=== PATIENT | male | born 1960 | race Caucasian/White ===

== ENCOUNTER 2020-09-26 07:44 | Outpatient (CLI) | payer OTHER ==
[2020-09-26 16:51] LABS: Anion Gap 15 mmol/L (10-20); BUN (Urea Nitrogen) 17 mg/dL (8.4-25.7); Calc. Creatinine Clearance 0 mL/min (70-130); Carbon Dioxide 22 mmol/L (22-29); Chloride 104 mmol/L (98-107); Potassium 4.5 mmol/L (3.5-5.1); Sodium 136 mmol/L (136-145)
[2020-09-26 16:52] LABS: Glucose 106 mg/dL (70-105)
[2020-09-27 02:28] LABS: SARS-CoV-2 MS2 Positive; SARS-CoV-2 N Gene Negative; SARS-CoV-2 S Gene Negative; SARS-CoV-2 by NAA Not Detected (NotDetected); SARS-CoV-2 orf1ab Negative
== END 2020-09-26 07:45 | disposition home or self-care (01) ==
LOC: LABBT 07:44
PROVIDERS: ATTEND Neurological Surgery
DX: Z01.818 Encounter for other preprocedural examination (principal); Z20.822 Contact with and (suspected) exposure to COVID-19; M48.061 Spinal stenosis, lumbar region without neurogenic claudication
CPT/HCPCS: 80048; 87635; 93005; 93010; U0003

== ENCOUNTER 2020-10-01 06:07 | Day surgery (SDC) | payer OTHER ==
[2020-09-29 13:46] VITALS: BMI 34.0
--- NOTE | 2020-09-30 16:56 | HP ---
HISTORY: Mr. Nuñez is referred to us for evaluation of neurogenic claudication and radiculopathy. [facility] that reveals lateral recess and moderate central canal stenosis of the lumbar segments, spanning L3-L5. He has had these injected by Dr. Mckinney as well as attempted physical therapies and while they helped, they were limited in their benefit. He hopes to discuss surgical intervention if possible. PAST MEDICAL HISTORY: Hypercholesterolemia, chronic pain syndrome, osteoarthritis, seasonal allergies and hypertension. PAST SURGICAL HISTORY: Right ankle, right hand, left hand, unspecified procedures. CURRENT MEDICATIONS: 1. Omeprazole. 2. Diclofenac. 3. Vytorin. 4. Lisinopril. 5. Fenofibrate. 6. Cyclobenzaprine. 7. Tizanidine. ALLERGIES: PENICILLIN, HYDROCHLOROTHIAZIDE. PHYSICAL EXAMINATION: Deferred for telehealth visit. ASSESSMENT: Lumbar spinal stenosis. PLAN: Dr. Trinh met with the patient, reviewed imaging and advocated for an L3-L5 decompression. He explained to the patient the risks, benefits, and alternatives of the procedure. The patient expressed understanding and elected to move forward with surgery as discussed. I do believe the patient is mentally competent and capable of making medical decisions for himself. We will move forward with surgery as planned. Job ID: [id number]
[2020-10-01] MEDS ORDERED: EPINEPHrine 1 MG/ML AMP ONE (06:25)
[2020-10-01] MEDS ORDERED: Bupivacaine PF 0.5% 30 ML VIAL ONE (06:25)
[2020-10-01] MEDS ORDERED: Thrombin 5000 UNITS/5 ML VIAL ONE (06:25)
[2020-10-01] MEDS ORDERED: Clindamycin/D5W 900 mg/50 ml Premix Bag ONE (06:34)
[2020-10-01] MEDS ORDERED: Levofloxacin 500 mg/D5W 100 ml Premix Bag ONE (06:34)
[2020-10-01] MEDS ORDERED: Fentanyl 100 MCG/2 ML VIAL ONE ×2 (06:52→09:57)
[2020-10-01] MEDS ORDERED: Midazolam HCl 2 mg/2 ml Vial ONE ×2 (07:27→08:04)
[2020-10-01] MEDS ORDERED: Mineral Oil Sterile 10ML 10 ML UDCUP ONE (07:57)
[2020-10-01] MEDS ORDERED: HYDROmorphone 2 MG/ML VIAL ONE (08:09)
[2020-10-01] MEDS ORDERED: SUGAMMADEX SODIUM 200 MG/2 ML VIAL ONE (08:57)
--- NOTE | 2020-10-01 09:10 | OP ---
DATE OF PROCEDURE: 10/01/2020 FINISHER HOT STRIP: Agus Kang PA-C INDICATION: Pain. DIAGNOSIS: Lumbar stenosis with lumbar radiculopathy. PROCEDURE PERFORMED: Bilateral L3-5 decompression. ANESTHESIA: General. DESCRIPTION OF PROCEDURE: The patient was brought into the operating room and placed under general anesthesia. He was flipped from the supine to prone position on operating room table. A linear incision was planned spanning L3 through L5. After prepping and draping and after an appropriate preoperative pause, the incision was created. The soft tissues were swept away from midline. Self-retaining retractors were placed in the wound for optimal exposure. After confirming the appropriate level with C-arm fluoroscopy, self-retaining retractors were placed and high-speed cutting drill bit was used to perform bilateral complete laminectomies of L4, bilateral inferior laminectomies on the inferior aspect of L4, and bilateral superior decompressions at the top of L5, so that the lateral recesses were well decompressed while leaving the spinous process and the supraspinous and interspinous ligaments intact for stability. After decompressing L3-L5, the wound was irrigated. Hemostasis was maintained throughout. The wound was then closed in anatomic layers, and a pressure dressing was applied. There were no known procedural complications. Job ID: [id number]
[2020-10-01] MEDS ORDERED: Tamsulosin HCl 0.4 MG CAP ONE (10:01)
[2020-10-01] MEDS ORDERED: diphenhydrAMINE 25 MG CAP ONE ×2 (10:52→10:56)
[2020-10-01] MEDS ORDERED: Morphine 2 MG/ML VIAL ONE (10:58)
[2020-10-01] MEDS ORDERED: Acetaminophen/Codeine 30-300mg Tablet ONE (11:41)
[2020-10-01] MEDS ORDERED: PHENYLEPHRINE-NS 100 MCG/ML 10 ML SYRINGE ONE (11:59)
[2020-10-01] MEDS ORDERED: ePHEDrine 50 MG/ML VIAL ONE (11:59)
[2020-10-01] MEDS ORDERED: Ondansetron ORAL SOLN. 4 MG/5 ML UDCUP ONE (11:59)
[2020-10-01] MEDS ORDERED: Lidocaine 1% PF 5 ML VIAL ONE (11:59)
[2020-10-01] MEDS ORDERED: Rocuronium Bromide 10 MG/ML (10ML VIAL) ONE (11:59)
[2020-10-01] MEDS ORDERED: Dexamethasone 20 MG/5 ML VIAL ONE (11:59)
[2020-10-01] MEDS ORDERED: PROPOFOL 200 MG/20 ML VIAL ONE (11:59)
== END 2020-10-01 13:00 | disposition home or self-care (01) ==
LOC: SDC 06:07
PROVIDERS: ATTEND Neurological Surgery
PROC: 00NY0ZZ Release Lumbar Spinal Cord, Open Approach (ICD-10-PCS; principal; 2020-10-01)
DX: M48.061 Spinal stenosis, lumbar region without neurogenic claudication (principal); M54.16 Radiculopathy, lumbar region; G89.4 Chronic pain syndrome; E78.00 Pure hypercholesterolemia, unspecified; E78.5 Hyperlipidemia, unspecified; I10 Essential (primary) hypertension; M19.90 Unspecified osteoarthritis, unspecified site; J30.2 Other seasonal allergic rhinitis; Z79.899 Other long term (current) drug therapy; Z88.0 Allergy status to penicillin; Z88.6 Allergy status to analgesic agent; Z88.8 Allergy status to other drugs, medicaments and biological substances; Z87.891 Personal history of nicotine dependence; E66.9 Obesity, unspecified; Z68.34 Body mass index [BMI] 34.0-34.9, adult
CPT/HCPCS: 76000; J0171; J1100; J1170; J1956; J2250; J2270; J2704; J3010; J3490; Q0162; Q0163; S0020

== ENCOUNTER 2021-10-19 08:57 | Outpatient (CLI) | payer OTHER | END 2021-10-19 08:58 | disposition home or self-care (01) | LOC: MRI 08:57 | PROVIDERS: ATTEND Internal Medicine | DX: M51.36 Other intervertebral disc degeneration, lumbar region (principal); M47.816 Spondylosis without myelopathy or radiculopathy, lumbar region | CPT/HCPCS: 72148 ==

== ENCOUNTER 2021-10-29 12:30 | Outpatient (CLI) | payer BC | END 2021-10-29 12:31 | disposition home or self-care (01) | LOC: PET 12:30 | PROVIDERS: ATTEND Family Medicine | DX: R91.8 Other nonspecific abnormal finding of lung field (principal); R91.1 Solitary pulmonary nodule; R59.0 Localized enlarged lymph nodes | CPT/HCPCS: 78815; A9552 ==

== ENCOUNTER 2021-11-12 13:09 | Outpatient (CLI) | payer OTHER ==
[2021-11-13 08:33] LABS: SARS-CoV-2 PCR by NAA Not Detected (NotDetected)
== END 2021-11-12 13:10 | disposition home or self-care (01) ==
LOC: LABBT 13:09
PROVIDERS: ATTEND Internal Medicine
DX: Z01.812 Encounter for preprocedural laboratory examination (principal); Z20.822 Contact with and (suspected) exposure to COVID-19
CPT/HCPCS: U0003; U0005

== ENCOUNTER 2021-11-16 08:16 | Day surgery (SDC) | payer BC, OTHER ==
[2021-11-12 14:33] VITALS: BMI 38.9
[2021-11-16] MEDS ORDERED: Lidocaine 1% MPF 2 ML VIAL ONE (08:54)
[2021-11-16] MEDS ORDERED: Fentanyl 250 MCG/5 ML VIAL ONE (10:44)
[2021-11-16] MEDS ORDERED: PHENYLEPHRINE-NS 100 MCG/ML 10 ML SYRINGE ONE (10:46)
[2021-11-16] MEDS ORDERED: Rocuronium Bromide 10 MG/ML (10ML VIAL) ONE (10:46)
[2021-11-16] MEDS ORDERED: Dexamethasone 20 MG/5 ML VIAL ONE (10:46)
[2021-11-16] MEDS ORDERED: Glycopyrrolate 0.2 MG/ML 5 ML SYRINGE ONE (10:46)
[2021-11-16] MEDS ORDERED: Esmolol 100 MG/10 ML VIAL ONE (10:46)
[2021-11-16] MEDS ORDERED: PROPOFOL 200 MG/20 ML VIAL ONE (10:46)
[2021-11-16] MEDS ORDERED: Lidocaine 1% PF 5 ML VIAL ONE (10:46)
[2021-11-16] MEDS ORDERED: Ondansetron PF 4 MG/2 ML Vial ONE (10:46)
[2021-11-16] MEDS ORDERED: Rocuronium Bromide 50 MG/5 ML VIAL ONE (11:20)
[2021-11-16] MEDS ORDERED: Pantoprazole 40 MG VIAL IVP SCH (13:15)
== END 2021-11-16 15:08 | disposition home or self-care (01) ==
LOC: SDC 08:16
PROVIDERS: ATTEND Internal Medicine
PROC: 0B9G8ZX Drainage of Left Upper Lung Lobe, Via Natural or Artificial Opening Endoscopic, Diagnostic (ICD-10-PCS; principal; 2021-11-16)
PROC: 07D78ZX Extraction of Thorax Lymphatic, Via Natural or Artificial Opening Endoscopic, Diagnostic (ICD-10-PCS; principal; 2021-11-16)
DX: C96.9 Malignant neoplasm of lymphoid, hematopoietic and related tissue, unspecified (principal); R91.1 Solitary pulmonary nodule; I10 Essential (primary) hypertension; E78.5 Hyperlipidemia, unspecified; M19.90 Unspecified osteoarthritis, unspecified site; M06.9 Rheumatoid arthritis, unspecified; E66.01 Morbid (severe) obesity due to excess calories; Z68.39 Body mass index [BMI] 39.0-39.9, adult; Z77.090 Contact with and (suspected) exposure to asbestos; Z87.891 Personal history of nicotine dependence; Z79.899 Other long term (current) drug therapy; Z88.0 Allergy status to penicillin; Z88.6 Allergy status to analgesic agent; Z88.8 Allergy status to other drugs, medicaments and biological substances
CPT/HCPCS: 71045; 88112; 88173; 88305; C9113; J1100; J2405; J2704; J3010

== ENCOUNTER 2021-12-04 08:41 | Outpatient (CLI) | payer OTHER | END 2021-12-04 08:42 | disposition home or self-care (01) | LOC: MRI 08:41 | PROVIDERS: ATTEND Internal Medicine Hematology & Oncology | DX: C34.82 Malignant neoplasm of overlapping sites of left bronchus and lung (principal) | CPT/HCPCS: 70553 ==

== ENCOUNTER 2022-01-11 05:31 | Day surgery (SDC) | payer BC, OTHER ==
[2022-01-07 11:01] VITALS: BMI 36.5
[2022-01-11] MEDS ORDERED: Lidocaine 1% w/Epinephrine 1:100K 20 ML VIAL ONE (06:39)
[2022-01-11] MEDS ORDERED: Bupivacaine 0.25% 10 ML VIAL ONE ×2 (06:39)
[2022-01-11] MEDS ORDERED: Ketorolac Tromethamine 30 MG/ML VIAL ONE (06:53)
[2022-01-11] MEDS ORDERED: Acetaminophen 500 MG TAB ONE (06:53)
[2022-01-11] MEDS ORDERED: ceFAZolin (BATCH) 2 GM/100 ML BAG ONE (06:53)
[2022-01-11] MEDS ORDERED: Fentanyl 100 MCG/2 ML VIAL ONE (07:09)
[2022-01-11] MEDS ORDERED: PROPOFOL 40 ML ONE (07:09)
[2022-01-11] MEDS ORDERED: Midazolam HCl 2 mg/2 ml Vial ONE (07:09)
== END 2022-01-11 09:13 | disposition home or self-care (01) ==
LOC: SDC 05:31
PROVIDERS: ATTEND Specialist
DX: C34.92 Malignant neoplasm of unspecified part of left bronchus or lung (principal); I10 Essential (primary) hypertension; M06.09 Rheumatoid arthritis without rheumatoid factor, multiple sites; K21.9 Gastro-esophageal reflux disease without esophagitis; E78.2 Mixed hyperlipidemia; Z77.090 Contact with and (suspected) exposure to asbestos; Z87.891 Personal history of nicotine dependence; Z79.899 Other long term (current) drug therapy; Z88.0 Allergy status to penicillin; Z88.6 Allergy status to analgesic agent; Z88.8 Allergy status to other drugs, medicaments and biological substances
CPT/HCPCS: 71045; C1788; J0690; J1642; J1885; J2250; J2704; J3010; S0020

== ENCOUNTER 2022-02-13 09:15 | Emergency (ER) | payer BC, OTHER ==
[2022-02-13] MEDS ORDERED: Ondansetron PF 4 MG/2 ML Vial ONE (10:02)
[2022-02-13 10:58] LABS: Hemoglobin 12.4 g/dL (14.0-18.0); Mean Corpuscular HGB CONC 34.5 g/dL (32.0-36.0); Mean Corpuscular Hemoglobin 32.4 pg (27.0-31.0); Mean Corpuscular Volume 94.1 fL (78.0-98.0); RBC Distribution Width 15.5 % (11.5-14.5); Red Blood Cell (RBC) Count 3.81 mill/uL (4.70-6.10)
[2022-02-13 11:07] LABS: ALT (SGPT) 52 U/L (8-55); AST (SGOT) 28 U/L (5-34); Albumin 3.5 g/dL (3.4-4.8); Alkaline Phosphatase 74 U/L (40-110); Anion Gap 11 mmol/L (10-20); BUN (Urea Nitrogen) 14 mg/dL (8.4-25.7); Bilirubin, Total 0.5 mg/dL (0.2-1.2); Calc. Creatinine Clearance 0 mL/min (70-130); Calcium 8.9 mg/dL (7.8-10.44); Carbon Dioxide 23 mmol/L (23-31); Chloride 106 mmol/L (98-107); Globulin 3.2 g/dL (2.4-3.5); Glucose 101 mg/dL (80-115); Lipase 31 U/L (8-78); Potassium 4.1 mmol/L (3.5-5.1); Protein, Total 6.7 g/dL (5.8-8.1); Sodium 136 mmol/L (136-145)
[2022-02-13 11:11] LABS: Anisocytosis SLIGHT = 6-15 cells (100X) (0-5/hpf); Eosinophils 2 % (0-10); Lymphocytes 20 % (21-51); MDiff Complete? YES; Mean Platelet Volume 5.9 fL (7.4-10.4); Monocytes 29 % (0-10); Neutrophil 49 % (42-75); Platelet Count 154 thou/uL (130-400); Platelet Morphology Comment Appears Adequate; Polychromasia SLIGHT = 2-3 cells (100X) (0-2/hpf); White Blood Cell (WBC) Count 3.3 thou/uL (4.8-10.8)
== END 2022-02-13 12:58 | disposition home or self-care (01) ==
LOC: ERS 09:15
DX: R19.7 Diarrhea, unspecified (principal); R00.0 Tachycardia, unspecified; E78.00 Pure hypercholesterolemia, unspecified; I71.4 Abdominal aortic aneurysm, without rupture; Z85.118 Personal history of other malignant neoplasm of bronchus and lung; Z87.891 Personal history of nicotine dependence; Z79.899 Other long term (current) drug therapy
CPT/HCPCS: 80053; 83690; 84484; 85025; 93005; 96361; 96374; J2405

== ENCOUNTER 2022-03-30 11:00 | Outpatient (CLI) | payer OTHER | END 2022-03-30 11:01 | disposition home or self-care (01) | LOC: PET 11:00 | PROVIDERS: ATTEND Internal Medicine Hematology & Oncology | DX: C34.82 Malignant neoplasm of overlapping sites of left bronchus and lung (principal); J84.10 Pulmonary fibrosis, unspecified; J98.4 Other disorders of lung; R91.8 Other nonspecific abnormal finding of lung field | CPT/HCPCS: 78815; A9552 ==

== ENCOUNTER 2022-04-22 12:37 | Inpatient (IN) | payer OTHER ==
[~2022-04-22 12:37] MED LIST: Iopamidol-370 76% 500 ML 1 ML ONE
[2022-04-22 13:42] LABS: Hemoglobin 14.9 g/dL (14.0-18.0); Mean Corpuscular HGB CONC 32.9 g/dL (32.0-36.0); Mean Corpuscular Hemoglobin 33.8 pg (27.0-31.0); Mean Platelet Volume 6.4 fL (7.4-10.4); Platelet Count 148 thou/uL (130-400); RBC Distribution Width 15.2 % (11.5-14.5); Red Blood Cell (RBC) Count 4.41 mill/uL (4.70-6.10); White Blood Cell (WBC) Count 15.9 thou/uL (4.8-10.8)
[2022-04-22 14:01] LABS: Anisocytosis SLIGHT = 6-15 cells (100X) (0-5/hpf); Band 5 % (5-11); MDiff Complete? YES; Macrocytosis SLIGHT = 6-15 cells (100X) (0-5/hpf); Metamyelocyte 1 % (0-0); Monocytes 2 % (0-10); Myelocyte 1 % (0-0); Neutrophil 91 % (42-75); Platelet Morphology Comment Appears Adequate
[2022-04-22 14:03] LABS: ALT (SGPT) 89 U/L (8-55); AST (SGOT) 17 U/L (5-34); Albumin 3.5 g/dL (3.4-4.8); Alkaline Phosphatase 72 U/L (40-110); Anion Gap 15 mmol/L (10-20); BUN (Urea Nitrogen) 29 mg/dL (8.4-25.7); Bilirubin, Total 1.3 mg/dL (0.2-1.2); Calc. Creatinine Clearance 0 mL/min (70-130); Calcium 9.4 mg/dL (7.8-10.44); Carbon Dioxide 21 mmol/L (23-31); Chloride 101 mmol/L (98-107); Estimated GFR 77; Globulin 2.6 g/dL (2.4-3.5); Glucose 167 mg/dL (80-115); Potassium 4.7 mmol/L (3.5-5.1); Protein, Total 6.1 g/dL (5.8-8.1); Sodium 132 mmol/L (136-145)
[2022-04-22 14:23] LABS: CKMB 3.7 ng/mL (0-6.6)
[2022-04-22] MEDS ORDERED: Cefepime 2 GM VIAL ONE (15:34)
[2022-04-22 16:14] LABS: SARS-CoV-2 NAA Rapid Test Not Detected (NotDetected)
[2022-04-22] MEDS ORDERED: VANCOMYCIN 2 GRAM/500 ML BAG 2 GM in Premix Bag 1 BAG IVPB SCH (16:30)
[2022-04-22 17:00] LABS: Troponin I 0.108 ng/mL (< 0.028)
[2022-04-22] MEDS ORDERED: Albuterol Sulfate 2.5 mg/3 ml Neb NEB PRN (18:23)
[2022-04-22] MEDS ORDERED: Diclofenac Sodium 50 MG DR TAB PO PRN (18:26)
[2022-04-22 19:00] VITALS: BMI 37.1
[2022-04-22 20:03] LABS: Troponin I 0.149 ng/mL (< 0.028)
[2022-04-22] MEDS: methylPREDNISolone Sod Succ/PF 125 MG/2 ML VIAL IVP SCH (20:24)
[2022-04-23 00:17] LABS: Troponin I 0.165 ng/mL (< 0.028)
[2022-04-23] MEDS: methylPREDNISolone Sod Succ/PF 125 MG/2 ML VIAL IVP SCH ×4 (01:43→21:38)
[2022-04-23] MEDS ORDERED: Cefepime 1 GM VIAL ONE (01:48)
[2022-04-23] MEDS ORDERED: Cefepime 2 GM in Sodium Chloride 0.9% 100 ML IVPB SCH (03:00)
[2022-04-23 04:09] LABS: #Eosinphils 0.1 thou/uL (0.0-0.7); #Lymphocytes 0.4 thou/uL (1.20-3.40); #Monocytes 0.2 thou/uL (0.11-0.59); #Neutrophils 12.6 thou/uL (1.40-6.50); %Basophils 0.1 % (0.0-1.0); %Eosinophils 0.6 % (0.0-10.0); %Lymphocytes 3.1 % (21.0-51.0); %Monocytes 1.2 % (0.0-10.0); Mean Corpuscular HGB CONC 33.3 g/dL (32.0-36.0); Mean Corpuscular Hemoglobin 34.6 pg (27.0-31.0); Mean Platelet Volume 6.5 fL (7.4-10.4); Platelet Count 126 thou/uL (130-400); RBC Distribution Width 15.2 % (11.5-14.5); Red Blood Cell (RBC) Count 4.06 mill/uL (4.70-6.10); White Blood Cell (WBC) Count 13.2 thou/uL (4.8-10.8)
[2022-04-23 04:28] LABS: ALT (SGPT) 84 U/L (8-55); AST (SGOT) 20 U/L (5-34); Albumin 3.3 g/dL (3.4-4.8); Alkaline Phosphatase 68 U/L (40-110); Anion Gap 15 mmol/L (10-20); BUN (Urea Nitrogen) 23 mg/dL (8.4-25.7); Bilirubin, Total 1.2 mg/dL (0.2-1.2); Calc. Creatinine Clearance 179 mL/min (70-130); Carbon Dioxide 21 mmol/L (23-31); Chloride 99 mmol/L (98-107); Estimated GFR 99; Globulin 2.4 g/dL (2.4-3.5); Glucose 183 mg/dL (80-115); Potassium 4.7 mmol/L (3.5-5.1); Protein, Total 5.7 g/dL (5.8-8.1); Sodium 130 mmol/L (136-145)
[2022-04-23 04:32] LABS: Troponin I 0.122 ng/mL (< 0.028)
[2022-04-23] MEDS: Lisinopril 20 MG TAB PO SCH (08:31)
[2022-04-23] MEDS: Clopidogrel Bisulfate 75 MG TAB PO SCH (08:32)
[2022-04-23] MEDS ORDERED: Sulfameth/Trimethoprim DS 800-160mg TAB PO SCH (14:45)
[2022-04-23] MEDS: Cefepime 2 GM in Sodium Chloride 0.9% 100 ML IVPB SCH (15:08)
[2022-04-23] MEDS: Mometasone/Formoterol 200/5 60 PUFF INH SCH (18:16)
[2022-04-24] MEDS: Cefepime 2 GM in Sodium Chloride 0.9% 100 ML IVPB SCH ×2 (02:38→14:23)
[2022-04-24] MEDS: methylPREDNISolone Sod Succ/PF 125 MG/2 ML VIAL IVP SCH ×3 (05:42→21:31)
[2022-04-24 05:55] LABS: #Eosinphils 0.1 thou/uL (0.0-0.7); #Lymphocytes 0.6 thou/uL (1.20-3.40); #Neutrophils 17.5 thou/uL (1.40-6.50); %Eosinophils 0.3 % (0.0-10.0); %Lymphocytes 3.3 % (21.0-51.0); %Monocytes 5.3 % (0.0-10.0); %Neutrophils 91.1 % (42.0-75.0); Hemoglobin 14.4 g/dL (14.0-18.0); Mean Corpuscular HGB CONC 33.4 g/dL (32.0-36.0); Mean Corpuscular Hemoglobin 34.5 pg (27.0-31.0); Mean Platelet Volume 6.4 fL (7.4-10.4); Platelet Count 153 thou/uL (130-400); RBC Distribution Width 15.1 % (11.5-14.5); Red Blood Cell (RBC) Count 4.17 mill/uL (4.70-6.10); White Blood Cell (WBC) Count 19.2 thou/uL (4.8-10.8)
[2022-04-24] MEDS: Mometasone/Formoterol 200/5 60 PUFF INH SCH (05:56)
[2022-04-24 06:14] LABS: Anion Gap 10 mmol/L (10-20); BUN (Urea Nitrogen) 25 mg/dL (8.4-25.7); CRP (Inflammatory) Less than 0.50 mg/dL (= or < 0.5); Calc. Creatinine Clearance 187 mL/min (70-130); Calcium 9.2 mg/dL (7.8-10.44); Carbon Dioxide 25 mmol/L (23-31); Chloride 99 mmol/L (98-107); Estimated GFR 100; Glucose 126 mg/dL (80-115); Potassium 4.7 mmol/L (3.5-5.1); Sodium 129 mmol/L (136-145)
[2022-04-24] MEDS: Mometasone 200 MCG/Formoterol 5 MCG 120 PUFF INHALER INH SCH ×2 (06:19→19:21)
[2022-04-24] MEDS: Lisinopril 20 MG TAB PO SCH (08:23)
[2022-04-24] MEDS: Clopidogrel Bisulfate 75 MG TAB PO SCH (08:24)
[2022-04-24] MEDS ORDERED: Furosemide 40 MG/4 ML VIAL SLOW IVP SCH (11:30)
[2022-04-24] MEDS: Acetaminophen 325 MG TAB PO PRN (12:37)
[2022-04-25] MEDS: Cefepime 2 GM in Sodium Chloride 0.9% 100 ML IVPB SCH ×2 (02:36→14:21)
[2022-04-25] MEDS: methylPREDNISolone Sod Succ/PF 125 MG/2 ML VIAL IVP SCH ×3 (05:30→23:01)
[2022-04-25] MEDS: Mometasone 200 MCG/Formoterol 5 MCG 120 PUFF INHALER INH SCH ×2 (06:48→18:59)
[2022-04-25] MEDS: Lisinopril 20 MG TAB PO SCH (08:48)
[2022-04-25] MEDS: Clopidogrel Bisulfate 75 MG TAB PO SCH (08:48)
[2022-04-25] MEDS ORDERED: Melatonin 3 MG TAB PO PRN (21:38)
[2022-04-26] MEDS: Cefepime 2 GM in Sodium Chloride 0.9% 100 ML IVPB SCH ×2 (04:50→14:40)
[2022-04-26] MEDS: methylPREDNISolone Sod Succ/PF 125 MG/2 ML VIAL IVP SCH (06:05)
[2022-04-26] MEDS: Mometasone 200 MCG/Formoterol 5 MCG 120 PUFF INHALER INH SCH ×2 (06:56→18:50)
[2022-04-26] MEDS: Sulfameth/Trimethoprim DS 800-160mg TAB PO SCH (08:55)
[2022-04-26] MEDS: Lisinopril 20 MG TAB PO SCH (08:55)
[2022-04-26] MEDS: Clopidogrel Bisulfate 75 MG TAB PO SCH (08:56)
[2022-04-26] MEDS ORDERED: Bumetanide 1 MG TAB PO SCH ×2 (14:15→16:30)
[2022-04-26] MEDS: methylPREDNISolone Sod Succ 40 MG VIAL IVP SCH (20:27)
[2022-04-27] MEDS: Cefepime 2 GM in Sodium Chloride 0.9% 100 ML IVPB SCH (03:14)
[2022-04-27] MEDS: Mometasone 200 MCG/Formoterol 5 MCG 120 PUFF INHALER INH SCH ×2 (06:57→18:37)
[2022-04-27] MEDS: methylPREDNISolone Sod Succ 40 MG VIAL IVP SCH ×2 (08:54→21:10)
[2022-04-27] MEDS: Clopidogrel Bisulfate 75 MG TAB PO SCH (08:56)
[2022-04-27] MEDS: Lisinopril 20 MG TAB PO SCH (08:56)
[2022-04-27] MEDS: Acetaminophen 325 MG TAB PO PRN (11:04)
[2022-04-27 11:40] LABS: #Eosinphils 0.1 thou/uL (0.0-0.7); #Lymphocytes 0.7 thou/uL (1.20-3.40); #Monocytes 0.9 thou/uL (0.11-0.59); #Neutrophils 12.3 thou/uL (1.40-6.50); %Basophils 0.1 % (0.0-1.0); %Eosinophils 0.7 % (0.0-10.0); %Lymphocytes 5.2 % (21.0-51.0); %Monocytes 6.7 % (0.0-10.0); %Neutrophils 87.3 % (42.0-75.0); Hemoglobin 15.4 g/dL (14.0-18.0); Mean Corpuscular HGB CONC 33.5 g/dL (32.0-36.0); Mean Corpuscular Hemoglobin 34.4 pg (27.0-31.0); Mean Platelet Volume 6.4 fL (7.4-10.4); Platelet Count 137 thou/uL (130-400); RBC Distribution Width 14.8 % (11.5-14.5); Red Blood Cell (RBC) Count 4.49 mill/uL (4.70-6.10); White Blood Cell (WBC) Count 14.1 thou/uL (4.8-10.8)
[2022-04-27] MEDS ORDERED: Ipratropium Bromide 2.5 ml Neb NEB PRN (11:51)
[2022-04-27 12:05] LABS: ALT (SGPT) 117 U/L (8-55); AST (SGOT) 31 U/L (5-34); Albumin 3.6 g/dL (3.4-4.8); Alkaline Phosphatase 68 U/L (40-110); Anion Gap 14 mmol/L (10-20); BUN (Urea Nitrogen) 32 mg/dL (8.4-25.7); Calc. Creatinine Clearance 165 mL/min (70-130); Calcium 9.5 mg/dL (7.8-10.44); Carbon Dioxide 23 mmol/L (23-31); Chloride 96 mmol/L (98-107); Estimated GFR 95; Globulin 2.5 g/dL (2.4-3.5); Glucose 92 mg/dL (80-115); Potassium 4.8 mmol/L (3.5-5.1); Protein, Total 6.1 g/dL (5.8-8.1); Sodium 128 mmol/L (136-145)
[2022-04-27] MEDS ORDERED: Cyclobenzaprine 10 MG TAB PO SCH (13:30)
[2022-04-27] MEDS: Ipratropium Bromide 2.5 ml Neb NEB SCH ×3 (14:11→23:24)
[2022-04-27] MEDS ORDERED: tiZANidine HCl 4 MG TAB PO SCH (18:15)
[2022-04-28] MEDS: Ipratropium Bromide 2.5 ml Neb NEB SCH ×4 (06:52→23:54)
[2022-04-28] MEDS: Mometasone 200 MCG/Formoterol 5 MCG 120 PUFF INHALER INH SCH ×2 (06:52→19:20)
[2022-04-28] MEDS: Lisinopril 20 MG TAB PO SCH (08:35)
[2022-04-28] MEDS: Clopidogrel Bisulfate 75 MG TAB PO SCH (08:35)
[2022-04-28] MEDS: Sulfameth/Trimethoprim DS 800-160mg TAB PO SCH (08:36)
[2022-04-28] MEDS: methylPREDNISolone Sod Succ 40 MG VIAL IVP SCH ×2 (08:51→20:15)
[2022-04-28 10:12] LABS: Hemoglobin 14.2 g/dL (14.0-18.0); Mean Corpuscular HGB CONC 35.6 g/dL (32.0-36.0); Mean Corpuscular Hemoglobin 35.3 pg (27.0-31.0); Mean Corpuscular Volume 99.2 fL (78.0-98.0); Mean Platelet Volume 11.8 fL (7.4-10.4); Platelet Count 254 thou/uL (130-400); RBC Distribution Width 23.3 % (11.5-14.5); Red Blood Cell (RBC) Count 4.02 mill/uL (4.70-6.10); White Blood Cell (WBC) Count 11.8 thou/uL (4.8-10.8)
[2022-04-28] MEDS ORDERED: tiZANidine HCl 4 MG TAB PO SCH (10:15)
[2022-04-28 10:20] LABS: Band 8 % (5-11); Lymphocytes 8 % (21-51); MDiff Complete? YES; Macrocytosis SLIGHT = 6-15 cells (100X) (0-5/hpf); Monocytes 9 % (0-10); Neutrophil 75 % (42-75); Platelet Morphology Comment Appears Adequate; Polychromasia SLIGHT = 2-3 cells (100X) (0-2/hpf)
[2022-04-28 11:40] LABS: Anion Gap 11 mmol/L (10-20); BUN (Urea Nitrogen) 24 mg/dL (8.4-25.7); Calc. Creatinine Clearance 200 mL/min (70-130); Calcium 9.2 mg/dL (7.8-10.44); Carbon Dioxide 25 mmol/L (23-31); Chloride 96 mmol/L (98-107); Estimated GFR 102; Glucose 104 mg/dL (80-115); Potassium 4.8 mmol/L (3.5-5.1); Sodium 127 mmol/L (136-145)
[2022-04-28 19:58] VITALS: TEMP 97.8
[2022-04-28] MEDS: tiZANidine HCl 4 MG TAB PO SCH (20:15)
[2022-04-29] MEDS: Ipratropium Bromide 2.5 ml Neb NEB SCH (06:32)
[2022-04-29] MEDS: Mometasone 200 MCG/Formoterol 5 MCG 120 PUFF INHALER INH SCH (06:34)
[2022-04-29] MEDS: tiZANidine HCl 4 MG TAB PO SCH (09:22)
[2022-04-29] MEDS: Clopidogrel Bisulfate 75 MG TAB PO SCH (09:22)
[2022-04-29] MEDS: Lisinopril 20 MG TAB PO SCH (09:22)
[2022-04-29] MEDS: methylPREDNISolone Sod Succ 40 MG VIAL IVP SCH (09:23)
[2022-04-29 09:48] LABS: #Eosinphils 0.1 thou/uL (0.0-0.7); #Lymphocytes 1.1 thou/uL (1.20-3.40); #Monocytes 0.8 thou/uL (0.11-0.59); #Neutrophils 12.6 thou/uL (1.40-6.50); %Basophils 0.1 % (0.0-1.0); %Eosinophils 0.4 % (0.0-10.0); %Lymphocytes 7.2 % (21.0-51.0); %Monocytes 5.7 % (0.0-10.0); %Neutrophils 86.5 % (42.0-75.0); Hemoglobin 15.3 g/dL (14.0-18.0); Mean Corpuscular Hemoglobin 33.8 pg (27.0-31.0); Mean Platelet Volume 6.3 fL (7.4-10.4); Platelet Count 149 thou/uL (130-400); RBC Distribution Width 14.7 % (11.5-14.5); Red Blood Cell (RBC) Count 4.53 mill/uL (4.70-6.10); White Blood Cell (WBC) Count 14.6 thou/uL (4.8-10.8)
[2022-04-29 10:07] LABS: Anion Gap 16 mmol/L (10-20); BUN (Urea Nitrogen) 24 mg/dL (8.4-25.7); Calc. Creatinine Clearance 192 mL/min (70-130); Calcium 9.5 mg/dL (7.8-10.44); Carbon Dioxide 20 mmol/L (23-31); Chloride 96 mmol/L (98-107); Estimated GFR 101; Glucose 94 mg/dL (80-115); Potassium 4.5 mmol/L (3.5-5.1); Sodium 127 mmol/L (136-145)
[2022-04-29] MEDS ORDERED: Aluminum & Magnesium Hydroxide 60 ML, Lidocaine 2% Viscous Solution 30 ML, diphenhydrAM... SSW PRN (12:43)
[2022-04-29 13:14] VITALS: BP 96/62
== END 2022-04-29 13:16 | disposition home or self-care (01) | DRG 205 ==
LOC: ERS 12:37 → INTOOBSV 17:50 → T4-A 17:50 → OBSVTOIN 04-23 11:24
PROVIDERS: ADMIT Internal Medicine; ATTEND Internal Medicine
DX: J70.0 Acute pulmonary manifestations due to radiation (principal); J96.21 Acute and chronic respiratory failure with hypoxia; I21.A1 Myocardial infarction type 2; J44.1 Chronic obstructive pulmonary disease with (acute) exacerbation; C77.1 Secondary and unspecified malignant neoplasm of intrathoracic lymph nodes; C34.12 Malignant neoplasm of upper lobe, left bronchus or lung; E87.1 Hypo-osmolality and hyponatremia; Z20.822 Contact with and (suspected) exposure to COVID-19; E78.5 Hyperlipidemia, unspecified; M19.90 Unspecified osteoarthritis, unspecified site; Y84.2 Radiological procedure and radiotherapy as the cause of abnormal reaction of the patient, or of later complication, without mention of misadventure at the time of the procedure; I73.9 Peripheral vascular disease, unspecified; I73.00 Raynaud's syndrome without gangrene; R25.2 Cramp and spasm; Z88.0 Allergy status to penicillin; Z88.8 Allergy status to other drugs, medicaments and biological substances; Z79.899 Other long term (current) drug therapy; Z98.890 Other specified postprocedural states
CPT/HCPCS: 36415; 71045; 71275; 80048; 80053; 82553; 83880; 84443; 84484; 85025; 86140; 93005; 93306; 94640; 96365; 96367; G0378; J0692; J1642; J1940; J2920; J2930; J3370; J3490; J7620; Q9967

== ENCOUNTER 2022-05-03 10:55 | Inpatient (IN) | payer OTHER ==
[2022-05-03 14:01] LABS: ALT (SGPT) 136 U/L (8-55); AST (SGOT) 53 U/L (5-34); Albumin 2.9 g/dL (3.4-4.8); Alkaline Phosphatase 64 U/L (40-110); Anion Gap 17 mmol/L (10-20); BUN (Urea Nitrogen) 30 mg/dL (8.4-25.7); Bilirubin, Total 1.4 mg/dL (0.2-1.2); Calc. Creatinine Clearance 0 mL/min (70-130); Calcium 8.4 mg/dL (7.8-10.44); Carbon Dioxide 20 mmol/L (23-31); Chloride 96 mmol/L (98-107); Estimated GFR 59; Globulin 2.8 g/dL (2.4-3.5); Glucose 79 mg/dL (80-115); Lipase 63 U/L (8-78); Magnesium 1.6 mg/dL (1.6-2.6); Potassium 5.5 mmol/L (3.5-5.1); Protein, Total 5.7 g/dL (5.8-8.1); Sodium 127 mmol/L (136-145)
[2022-05-03 14:05] LABS: #Eosinphils 0.1 thou/uL (0.0-0.7); #Lymphocytes 0.3 thou/uL (1.20-3.40); #Monocytes 0.2 thou/uL (0.11-0.59); %Eosinophils 0.7 % (0.0-10.0); %Lymphocytes 2.9 % (21.0-51.0); %Monocytes 2.4 % (0.0-10.0); %Neutrophils 94.1 % (42.0-75.0); Band 16 % (5-11); Hemoglobin 14.8 g/dL (14.0-18.0); Lymphocytes 4 % (21-51); MDiff Complete? YES; Macrocytosis SLIGHT = 6-15 cells (100X) (0-5/hpf); Mean Corpuscular HGB CONC 33.1 g/dL (32.0-36.0); Mean Corpuscular Hemoglobin 33.9 pg (27.0-31.0); Mean Platelet Volume 7.6 fL (7.4-10.4); Monocytes 3 % (0-10); Neutrophil 76 % (42-75); Platelet Count 72 thou/uL (130-400); Platelet Morphology Comment Appears Decreased; Polychromasia SLIGHT = 2-3 cells (100X) (0-2/hpf); RBC Distribution Width 14.3 % (11.5-14.5); Reactive Lymphocytes 1 % (0-10); Red Blood Cell (RBC) Count 4.35 mill/uL (4.70-6.10); White Blood Cell (WBC) Count 9.5 thou/uL (4.8-10.8)
[2022-05-03 14:15] LABS: CKMB 3.3 ng/mL (0-6.6)
[2022-05-03] MEDS ORDERED: Iopamidol-370 76% 500 ML 1 ML ONE (15:54)
[2022-05-03 16:29] LABS: Lactic Acid 2.2 mmol/L (0.5-2.2)
[2022-05-03 16:34] LABS: ALT (SGPT) 132 U/L (8-55); AST (SGOT) 48 U/L (5-34); Albumin 2.8 g/dL (3.4-4.8); Alkaline Phosphatase 59 U/L (40-110); Anion Gap 14 mmol/L (10-20); BUN (Urea Nitrogen) 27 mg/dL (8.4-25.7); Bilirubin, Total 1.2 mg/dL (0.2-1.2); Calc. Creatinine Clearance 0 mL/min (70-130); Calcium 8.2 mg/dL (7.8-10.44); Carbon Dioxide 19 mmol/L (23-31); Chloride 98 mmol/L (98-107); Estimated GFR 66; Globulin 2.3 g/dL (2.4-3.5); Glucose 121 mg/dL (80-115); Protein, Total 5.1 g/dL (5.8-8.1); Sodium 126 mmol/L (136-145)
[2022-05-03 18:01] LABS: Bilirubin Negative (Negative); Blood, Urine Negative (Negative); Clarity Clear (Clear); Glucose, Urine (Dipstick) Normal (Negative); Ketone, Urine Negative (Negative); Leukocyte Negative Leu/uL (Negative); Nitrite Negative (Negative); Protein, Urine (Dipstick) Negative (Neg-Trace); Specific Gravity, Urine 1.018 (1.002-1.036); Urobilinogen Normal mg/dL (Less than 2); pH, Urine 6.5 (5.0-9.0)
[2022-05-03] MEDS ORDERED: Lidocaine Viscous Sol 2% 15 ml UD Cup ONE (19:34)
[2022-05-03] MEDS ORDERED: Lidocaine Viscous Sol 2% 15 ml UD Cup SSP PRN (22:42)
[2022-05-03] MEDS ORDERED: Ondansetron PF 4 MG/2 ML Vial IVP PRN (22:45)
[2022-05-03] MEDS ORDERED: Acetaminophen 650 MG Suppository PR PRN (22:45)
[2022-05-03] MEDS ORDERED: Ondansetron ODT 4 MG TAB PO PRN (22:45)
[2022-05-03] MEDS ORDERED: Acetaminophen 325 MG TAB PO PRN (22:45)
[2022-05-03] MEDS ORDERED: predniSONE 50 MG TAB PO SCH (23:45)
[2022-05-03] MEDS: Sodium Chloride 0.9% 1,000 ML IV SCH (23:46)
[2022-05-04] MEDS ORDERED: ALPRAZolam 0.25 MG TAB PO SCH (05:00)
[2022-05-04 06:02] LABS: Hemoglobin 13.6 g/dL (14.0-18.0); Mean Corpuscular HGB CONC 33.2 g/dL (32.0-36.0); Mean Corpuscular Hemoglobin 33.7 pg (27.0-31.0); Platelet Count 74 thou/uL (130-400); RBC Distribution Width 14.5 % (11.5-14.5); Red Blood Cell (RBC) Count 4.02 mill/uL (4.70-6.10); White Blood Cell (WBC) Count 8.7 thou/uL (4.8-10.8)
[2022-05-04] MEDS: Furosemide 40 MG/4 ML VIAL SLOW IVP SCH (06:17)
[2022-05-04 06:21] LABS: Anion Gap 13 mmol/L (10-20); BUN (Urea Nitrogen) 25 mg/dL (8.4-25.7); Calc. Creatinine Clearance 192 mL/min (70-130); Calcium 8.6 mg/dL (7.8-10.44); Carbon Dioxide 19 mmol/L (23-31); Chloride 100 mmol/L (98-107); Estimated GFR 102; Glucose 134 mg/dL (80-115); Sodium 127 mmol/L (136-145)
[2022-05-04 06:30] LABS: Actual Bicarbonate (HCO3a) 18.5 mEq/L (22-28); Base Excess (BEa) -4.2 mEq/L (-2.0 to +3.0); CO2 Tension 27.8 mmHg (35.0-45.0); Calcium, Ionized (arterial) 1.21 mmol/L (1.12-1.30); Carboxyhemoglobin (COHb) 0.8 gm% (0.0-3.0); Hemoglobin (Hb) 14.3 g/dL (14.0-18.0); Potassium - ABG Lab 4.76 mmol/L (3.70-5.30); pH, Arterial 7.44 (7.35-7.45)
[2022-05-04] MEDS ORDERED: Bumetanide 1 MG/4 ML VIAL IVP SCH (06:30)
[2022-05-04 06:32] LABS: O2 Tension (PaO2), arterial 52.7 mmHg (> 80.0); Puncture Site LRA
[2022-05-04 06:35] LABS: Band 28 % (5-11); Lymphocytes 1 % (21-51); MDiff Complete? YES; Metamyelocyte 1 % (0-0); Monocytes 3 % (0-10); Neutrophil 65 % (42-75); Platelet Morphology Comment Appears Decreased; Reactive Lymphocytes 2 % (0-10)
[2022-05-04 06:57] LABS: Lactic Acid 1.5 mmol/L (0.5-2.2)
[2022-05-04] MEDS: Mometasone 100 MCG/PUFF (1 INHALER) INH SCH ×2 (07:34→19:32)
[2022-05-04] MEDS ORDERED: Prevnar 13-Val Conj/PF 0.5 ML SYRINGE IM ONE (09:00)
[2022-05-04] MEDS ORDERED: predniSONE 50 MG TAB PO SCH (09:00)
[2022-05-04] MEDS ORDERED: Enoxaparin Sodium 40 MG/0.4 ML SYRINGE SC SCH (09:00)
[2022-05-04] MEDS: Clopidogrel Bisulfate 75 MG TAB PO SCH (10:13)
[2022-05-04] MEDS: Sodium Chloride 0.9% 1,000 ML IV SCH ×2 (10:17→11:31)
[2022-05-04] MEDS: ALPRAZolam 0.25 MG TAB PO PRN ×2 (11:07→18:32)
[2022-05-04] MEDS: methylPREDNISolone Sod Succ 40 MG VIAL IVP SCH ×2 (11:07→18:08)
[2022-05-04] MEDS ORDERED: methylPREDNISolone Sod Succ/PF 125 MG/2 ML VIAL IVP SCH (12:00)
[2022-05-04] MEDS ORDERED: Dextrose 5% in Water 1,000 ML IV PRN (18:43)
[2022-05-04] MEDS ORDERED: Dextrose 50% Abboject 50 ML SYRINGE SLOW IVP PRN (18:43)
[2022-05-04] MEDS ORDERED: Fludrocortisone Acetate 0.1 MG TAB PO SCH (18:45)
[2022-05-04] MEDS ORDERED: Oxybutynin ER 5 MG TAB PO SCH (18:45)
[2022-05-04 19:00] LABS: Actual Bicarbonate (HCO3a) 14.2 mEq/L (22-28); Base Excess (BEa) -9.2 mEq/L (-2.0 to +3.0); Calcium, Ionized (arterial) 1.24 mmol/L (1.12-1.30); Carboxyhemoglobin (COHb) 0.9 gm% (0.0-3.0); Hemoglobin (Hb) 15.7 g/dL (14.0-18.0); O2 Tension (PaO2), arterial 64.1 mmHg (> 80.0); Potassium - ABG Lab 5.37 mmol/L (3.70-5.30); pH, Arterial 7.36 (7.35-7.45)
[2022-05-04] MEDS ORDERED: Hydrocortisone Sod Succ/PF 100 mg/2 ml Vial IVP SCH (19:00)
[2022-05-04 19:07] LABS: CO2 Tension 25.8 mmHg (35.0-45.0); Puncture Site LRA
[2022-05-04] MEDS ORDERED: Lorazepam (BATCHED) 2 MG/ML SYR SLOW IVP SCH (19:15)
[2022-05-04] MEDS ORDERED: Dexmedetomidine In 0.9 % NaCl 400 MCG in Premix Bag 1 BAG IVPB SCH (19:15)
[2022-05-04 19:38] LABS: Hemoglobin 15.1 g/dL (14.0-18.0); Mean Corpuscular Hemoglobin 34.1 pg (27.0-31.0); Mean Platelet Volume 7.6 fL (7.4-10.4); Platelet Count 80 thou/uL (130-400); RBC Distribution Width 14.5 % (11.5-14.5); Red Blood Cell (RBC) Count 4.43 mill/uL (4.70-6.10); White Blood Cell (WBC) Count 11.6 thou/uL (4.8-10.8)
[2022-05-04 19:50] LABS: Anion Gap 19 mmol/L (10-20); BUN (Urea Nitrogen) 30 mg/dL (8.4-25.7); Calc. Creatinine Clearance 151 mL/min (70-130); Calcium 9.1 mg/dL (7.8-10.44); Carbon Dioxide 15 mmol/L (23-31); Chloride 98 mmol/L (98-107); Estimated GFR 88; Glucose 133 mg/dL (80-115); Potassium 5.5 mmol/L (3.5-5.1); Sodium 126 mmol/L (136-145)
[2022-05-04] MEDS ORDERED: Vancomycin HCl 2.5 GM in Sodium Chloride 0.9% 500 ML IVPB SCH (20:00)
[2022-05-04 20:08] LABS: Band 23 % (5-11); Lymphocytes 1 % (21-51); MDiff Complete? YES; Macrocytosis SLIGHT = 6-15 cells (100X) (0-5/hpf); Monocytes 2 % (0-10); Myelocyte 1 % (0-0); Neutrophil 70 % (42-75); Platelet Morphology Comment Appears Decreased; Polychromasia SLIGHT = 2-3 cells (100X) (0-2/hpf); Reactive Lymphocytes 3 % (0-10)
[2022-05-04] MEDS ORDERED: Morphine 4 MG/ML VIAL SLOW IVP SCH (20:15)
[2022-05-04] MEDS: Cefepime 2 GM in Sodium Chloride 0.9% 100 ML IVPB SCH (22:56)
[2022-05-05] MEDS ORDERED: Electrolyte Replacement Protocol 1 EACH FS SCH (04:00)
[2022-05-05] MEDS: Morphine 4 MG/ML VIAL SLOW IVP PRN ×2 (04:03→08:24)
[2022-05-05 04:44] LABS: Actual Bicarbonate (HCO3a) 14.8 mEq/L (22-28); Base Excess (BEa) -9.1 mEq/L (-2.0 to +3.0); CO2 Tension 27.6 mmHg (35.0-45.0); Carboxyhemoglobin (COHb) 0.8 gm% (0.0-3.0); Hemoglobin (Hb) 14.9 g/dL (14.0-18.0); Potassium - ABG Lab 5.68 mmol/L (3.70-5.30); pH, Arterial 7.35 (7.35-7.45)
[2022-05-05 04:45] LABS: O2 Tension (PaO2), arterial 56.2 mmHg (> 80.0); Puncture Site LRA
[2022-05-05 04:58] LABS: ALT (SGPT) 127 U/L (8-55); AST (SGOT) 80 U/L (5-34); Albumin 3.1 g/dL (3.4-4.8); Alkaline Phosphatase 129 U/L (40-110); Anion Gap 20 mmol/L (10-20); BUN (Urea Nitrogen) 36 mg/dL (8.4-25.7); Bilirubin, Total 2.8 mg/dL (0.2-1.2); Calc. Creatinine Clearance 126 mL/min (70-130); Calcium 8.9 mg/dL (7.8-10.44); Carbon Dioxide 14 mmol/L (23-31); Chloride 99 mmol/L (98-107); Estimated GFR 71; Globulin 2.9 g/dL (2.4-3.5); Glucose 137 mg/dL (80-115); Magnesium 1.8 mg/dL (1.6-2.6); Potassium 5.7 mmol/L (3.5-5.1); Sodium 127 mmol/L (136-145)
[2022-05-05] MEDS ORDERED: Haloperidol Lactate 5 MG/ML VIAL SLOW IVP SCH ×2 (05:00→09:45)
[2022-05-05] MEDS: Cefepime 2 GM in Sodium Chloride 0.9% 100 ML IVPB SCH ×3 (05:08→22:18)
[2022-05-05 06:01] LABS: Band 33 % (5-11); Hemoglobin 14.7 g/dL (14.0-18.0); Lymphocytes 12 % (21-51); MDiff Complete? YES; Mean Corpuscular HGB CONC 33.1 g/dL (32.0-36.0); Mean Corpuscular Hemoglobin 33.7 pg (27.0-31.0); Mean Platelet Volume 8.2 fL (7.4-10.4); Monocytes 6 % (0-10); Neutrophil 49 % (42-75); Platelet Count 86 thou/uL (130-400); Platelet Morphology Comment Appears Decreased; RBC Distribution Width 14.5 % (11.5-14.5); Red Blood Cell (RBC) Count 4.37 mill/uL (4.70-6.10); White Blood Cell (WBC) Count 15.5 thou/uL (4.8-10.8)
[2022-05-05] MEDS: Mometasone 100 MCG/PUFF (1 INHALER) INH SCH ×2 (07:27→18:11)
[2022-05-05] MEDS ORDERED: Magnesium 2 GM/50 ML(in water) 2 GM in Premix Bag 1 BAG IVPB SCH (08:00)
[2022-05-05] MEDS: Sodium Chloride 0.9% 1,000 ML IV SCH (08:10)
[2022-05-05] MEDS: VANCOMYCIN 2 GRAM/500 ML BAG 2 GM in Premix Bag 1 BAG IVPB SCH ×2 (08:11→20:15)
[2022-05-05] MEDS: Fludrocortisone Acetate 0.1 MG TAB PO SCH (08:31)
[2022-05-05] MEDS: Clopidogrel Bisulfate 75 MG TAB PO SCH (08:31)
[2022-05-05] MEDS ORDERED: Fentanyl 100 MCG/2 ML VIAL ONE (10:11)
[2022-05-05] MEDS ORDERED: Ventilator Sedation Protocol 1 EACH FS SCH (10:30)
[2022-05-05] MEDS ORDERED: DISCONTINUE PREVIOUS NARCOTIC PAIN MEDICATIONS AND BENZODIAZEPINES FS SCH (10:45)
[2022-05-05] MEDS ORDERED: PROPOFOL 200 MG/20 ML VIAL ONE (10:45)
[2022-05-05] MEDS ORDERED: Morphine 2 MG/ML VIAL SLOW IVP PRN (10:45)
[2022-05-05] MEDS ORDERED: Fentanyl BOLUS 250 ML IVPB PRN (10:45)
[2022-05-05] MEDS ORDERED: Rocuronium Bromide 10 MG/ML (10ML VIAL) ONE (10:45)
[2022-05-05] MEDS ORDERED: Morphine 4 MG/ML VIAL SLOW IVP PRN (10:45)
[2022-05-05] MEDS ORDERED: Propofol BOLUS 1,000 MG/100 ML VIAL IV PRN (10:45)
[2022-05-05] MEDS: Fentanyl CADD 100 ML IV SCH (10:58)
[2022-05-05] MEDS: Propofol 1,000 MG/100 ML VIAL IV PRN ×4 (11:10→23:59)
[2022-05-05] MEDS ORDERED: Sodium Bicarb 50 MEQ/50 ML VIAL ONE (11:11)
[2022-05-05] MEDS ORDERED: Sodium Bicarb 50 MEQ/50 ML VIAL IVP SCH (11:15)
[2022-05-05] MEDS ORDERED: Lactated Ringer's 1,000 ML IV SCH (11:15)
[2022-05-05 11:17] LABS: Actual Bicarbonate (HCO3a) 12.9 mEq/L (22-28); Base Excess (BEa) -14.1 mEq/L (-2.0 to +3.0); CO2 Tension 33.9 mmHg (35.0-45.0); Calcium, Ionized (arterial) 1.23 mmol/L (1.12-1.30); Carboxyhemoglobin (COHb) 0.7 gm% (0.0-3.0); Hemoglobin (Hb) 13.7 g/dL (14.0-18.0); Potassium - ABG Lab 5.69 mmol/L (3.70-5.30)
[2022-05-05 11:19] LABS: O2 Tension (PaO2), arterial 58.8 mmHg (> 80.0); Puncture Site LRA
[2022-05-05 11:20] LABS: ALV-art Gradient 611.825 mmHg (0-20)
[2022-05-05] MEDS: Midazolam HCl 2 mg/2 ml Vial SLOW IVP PRN ×4 (11:43→18:48)
[2022-05-05] MEDS ORDERED: Lidocaine 1% (PF) 30 ML VIAL SC SCH (12:30)
[2022-05-05] MEDS ORDERED: Lidocaine 1% PF 10 ML AMP EPIDURAL SCH (12:45)
[2022-05-05] MEDS ORDERED: methylPREDNISolone Sod Succ/PF 125 MG/2 ML VIAL IVP SCH (16:00)
[2022-05-05] MEDS ORDERED: Dextrose 5%-Lactated Ringers 1,000 ML IV SCH (16:00)
[2022-05-05] MEDS ORDERED: Lactated Ringer's 500 ML IV SCH (16:00)
[2022-05-05] MEDS: Pantoprazole 40 MG VIAL IVP SCH (20:16)
[2022-05-05] MEDS: NOREPINEPHRINE 8 MG/250 ML-D5W 250 ML IVPB SCH (23:59)
[2022-05-06] MEDS: Hydrocortisone Sod Succ/PF 100 mg/2 ml Vial IVP SCH ×2 (00:02→05:38)
[2022-05-06 04:14] LABS: #Lymphocytes 1.3 thou/uL (1.20-3.40); #Monocytes 0.5 thou/uL (0.11-0.59); #Neutrophils 9.7 thou/uL (1.40-6.50); %Basophils 0.1 % (0.0-1.0); %Eosinophils 0.1 % (0.0-10.0); %Lymphocytes 11.6 % (21.0-51.0); %Monocytes 4.2 % (0.0-10.0); %Neutrophils 83.9 % (42.0-75.0); Hemoglobin 12.5 g/dL (14.0-18.0); Mean Corpuscular HGB CONC 34.3 g/dL (32.0-36.0); Mean Corpuscular Hemoglobin 34.7 pg (27.0-31.0); Mean Platelet Volume 7.9 fL (7.4-10.4); Platelet Count 64 thou/uL (130-400); RBC Distribution Width 14.3 % (11.5-14.5); Red Blood Cell (RBC) Count 3.61 mill/uL (4.70-6.10); White Blood Cell (WBC) Count 11.6 thou/uL (4.8-10.8)
[2022-05-06 04:26] LABS: ALT (SGPT) 86 U/L (8-55); AST (SGOT) 53 U/L (5-34); Albumin 2.6 g/dL (3.4-4.8); Alkaline Phosphatase 145 U/L (40-110); Anion Gap 15 mmol/L (10-20); BUN (Urea Nitrogen) 40 mg/dL (8.4-25.7); Bilirubin, Total 2.2 mg/dL (0.2-1.2); Calc. Creatinine Clearance 152 mL/min (70-130); Calcium 8.5 mg/dL (7.8-10.44); Carbon Dioxide 19 mmol/L (23-31); Chloride 103 mmol/L (98-107); Estimated GFR 85; Globulin 2.9 g/dL (2.4-3.5); Glucose 212 mg/dL (80-115); Potassium 5.3 mmol/L (3.5-5.1); Protein, Total 5.5 g/dL (5.8-8.1); Sodium 132 mmol/L (136-145)
[2022-05-06] MEDS ORDERED: Fentanyl CADD 100 ML ONE ×2 (05:12→22:50)
[2022-05-06 05:27] VITALS: BMI 37.4
[2022-05-06] MEDS: Mometasone 100 MCG/PUFF (1 INHALER) INH SCH ×2 (05:30→18:16)
[2022-05-06] MEDS: Cefepime 2 GM in Sodium Chloride 0.9% 100 ML IVPB SCH ×3 (05:38→21:21)
[2022-05-06] MEDS: Fentanyl CADD 100 ML IV SCH ×2 (05:38→22:54)
[2022-05-06] MEDS: Sodium Chloride 0.9% 1,000 ML IV SCH ×2 (06:17→21:29)
[2022-05-06 07:22] LABS: Actual Bicarbonate (HCO3a) 18.7 mEq/L (22-28); Base Excess (BEa) -4.9 mEq/L (-2.0 to +3.0); Calcium, Ionized (arterial) 1.22 mmol/L (1.12-1.30); Hemoglobin (Hb) 14.9 g/dL (14.0-18.0); Potassium - ABG Lab 4.87 mmol/L (3.70-5.30)
[2022-05-06 07:34] LABS: Vancomycin, Trough 17.6 ug/mL
[2022-05-06 07:48] LABS: O2 Tension (PaO2), arterial 57.8 mmHg (> 80.0); Puncture Site LRA
[2022-05-06] MEDS: VANCOMYCIN 2 GRAM/500 ML BAG 2 GM in Premix Bag 1 BAG IVPB SCH ×2 (08:36→21:28)
[2022-05-06] MEDS: Clopidogrel Bisulfate 75 MG TAB PO SCH (08:36)
[2022-05-06] MEDS: Pantoprazole 40 MG VIAL IVP SCH ×2 (08:36→21:21)
[2022-05-06] MEDS: Fludrocortisone Acetate 0.1 MG TAB PO SCH (08:50)
[2022-05-06] MEDS ORDERED: predniSONE 20 MG TAB PO SCH (09:00)
[2022-05-06] MEDS: Propofol 1,000 MG/100 ML VIAL IV PRN ×4 (10:33→22:58)
[2022-05-06] MEDS: methylPREDNISolone Sod Succ 40 MG VIAL IVP SCH ×2 (11:41→21:22)
[2022-05-06 14:32] VITALS: BP 97/59
[2022-05-06] MEDS: NOREPINEPHRINE 8 MG/250 ML-D5W 250 ML IVPB SCH (14:33)
[2022-05-06 15:08] LABS: BF Color Yellow; BF RBC Count - Manual 3 /cu.mm; BF WBC/Nonhematics Ct.-Manual 9 /cu.mm; Body Fluid Source Bronchioalveol Lavag; Clarity Hazy (Clear)
[2022-05-06 15:13] LABS: BF Segmented Neutrophils 77 %; Cell Count Non Hematic 21 %; Lymphocytes 2 %
[2022-05-06] MEDS: Lactated Ringer's 1,000 ML IV SCH (18:35)
[2022-05-07] MEDS: Propofol 1,000 MG/100 ML VIAL IV PRN ×6 (02:37→22:27)
[2022-05-07] MEDS: methylPREDNISolone Sod Succ 40 MG VIAL IVP SCH ×3 (04:04→20:15)
[2022-05-07 04:26] LABS: #Lymphocytes 0.7 thou/uL (1.20-3.40); #Monocytes 0.2 thou/uL (0.11-0.59); #Neutrophils 8.9 thou/uL (1.40-6.50); %Basophils 0.1 % (0.0-1.0); %Eosinophils 0.1 % (0.0-10.0); %Lymphocytes 6.8 % (21.0-51.0); %Monocytes 2.3 % (0.0-10.0); %Neutrophils 90.7 % (42.0-75.0); Hemoglobin 11.7 g/dL (14.0-18.0); Mean Corpuscular HGB CONC 35.7 g/dL (32.0-36.0); Mean Corpuscular Hemoglobin 36.3 pg (27.0-31.0); Mean Platelet Volume 8.1 fL (7.4-10.4); Platelet Count 54 thou/uL (130-400); RBC Distribution Width 14.1 % (11.5-14.5); Red Blood Cell (RBC) Count 3.21 mill/uL (4.70-6.10); White Blood Cell (WBC) Count 9.8 thou/uL (4.8-10.8)
[2022-05-07 04:51] LABS: ALT (SGPT) 72 U/L (8-55); AST (SGOT) 35 U/L (5-34); Albumin 2.6 g/dL (3.4-4.8); Alkaline Phosphatase 123 U/L (40-110); Anion Gap 14 mmol/L (10-20); BUN (Urea Nitrogen) 37 mg/dL (8.4-25.7); Bilirubin, Total 1.4 mg/dL (0.2-1.2); Calc. Creatinine Clearance 191 mL/min (70-130); Calcium 9.2 mg/dL (7.8-10.44); Carbon Dioxide 20 mmol/L (23-31); Chloride 104 mmol/L (98-107); Estimated GFR 100; Globulin 2.7 g/dL (2.4-3.5); Glucose 164 mg/dL (80-115); Potassium 4.8 mmol/L (3.5-5.1); Protein, Total 5.3 g/dL (5.8-8.1); Sodium 133 mmol/L (136-145)
[2022-05-07] MEDS: Cefepime 2 GM in Sodium Chloride 0.9% 100 ML IVPB SCH ×3 (05:10→22:27)
[2022-05-07] MEDS: Mometasone 100 MCG/PUFF (1 INHALER) INH SCH ×2 (06:36→18:27)
[2022-05-07 07:12] LABS: Actual Bicarbonate (HCO3a) 20.2 mEq/L (22-28); Base Excess (BEa) -5.4 mEq/L (-2.0 to +3.0); CO2 Tension 39.9 mmHg (35.0-45.0); Calcium, Ionized (arterial) 1.31 mmol/L (1.12-1.30); O2 Tension (PaO2), arterial 63.7 mmHg (> 80.0); Potassium - ABG Lab 4.69 mmol/L (3.70-5.30); pH, Arterial 7.32 (7.35-7.45)
[2022-05-07 07:25] LABS: Puncture Site RRA
[2022-05-07 07:26] LABS: ALV-art Gradient 349.875 mmHg (0-20)
[2022-05-07] MEDS: Lactated Ringer's 1,000 ML IV SCH ×2 (07:26→20:16)
[2022-05-07] MEDS: VANCOMYCIN 2 GRAM/500 ML BAG 2 GM in Premix Bag 1 BAG IVPB SCH ×2 (08:01→20:19)
[2022-05-07] MEDS: Pantoprazole 40 MG VIAL IVP SCH ×2 (08:56→20:15)
[2022-05-07] MEDS: Clopidogrel Bisulfate 75 MG TAB PO SCH (08:57)
[2022-05-07] MEDS ORDERED: Polyethylene Glycol 3350 17 GM Packet PER TUBE SCH (09:45)
[2022-05-07] MEDS ORDERED: Senokot S 8.6-50 MG TAB PO SCH (09:45)
[2022-05-07] MEDS ORDERED: Fentanyl CADD 100 ML ONE (11:50)
[2022-05-07] MEDS: Fentanyl CADD 100 ML IV SCH (11:58)
[2022-05-07] MEDS: Senokot S 8.6-50 MG TAB PO SCH (20:15)
[2022-05-07 23:07] LABS: L.pneumophilia Abs <0.91 OD ratio (0.00-0.90); Mycoplasma pneumoniae IgG AB 192 U/mL (0-99); Mycoplasma pneumoniae IgM AB Less than 770 U/mL (0-769)
[2022-05-08] MEDS: Propofol 1,000 MG/100 ML VIAL IV PRN ×6 (01:27→17:42)
[2022-05-08] MEDS ORDERED: Fentanyl CADD 100 ML ONE (01:39)
[2022-05-08] MEDS: Fentanyl CADD 100 ML IV SCH ×2 (01:41→14:06)
[2022-05-08] MEDS: methylPREDNISolone Sod Succ 40 MG VIAL IVP SCH ×2 (03:24→11:45)
[2022-05-08 04:38] LABS: ALT (SGPT) 87 U/L (8-55); AST (SGOT) 39 U/L (5-34); Albumin 2.5 g/dL (3.4-4.8); Alkaline Phosphatase 108 U/L (40-110); Anion Gap 13 mmol/L (10-20); BUN (Urea Nitrogen) 40 mg/dL (8.4-25.7); Bilirubin, Total 1.1 mg/dL (0.2-1.2); Calc. Creatinine Clearance 205 mL/min (70-130); Calcium 9.4 mg/dL (7.8-10.44); Carbon Dioxide 20 mmol/L (23-31); Chloride 106 mmol/L (98-107); Estimated GFR 102; Globulin 2.5 g/dL (2.4-3.5); Glucose 149 mg/dL (80-115); Potassium 5.2 mmol/L (3.5-5.1); Sodium 134 mmol/L (136-145)
[2022-05-08 04:50] LABS: #Basophils 0.1 thou/uL (0.0-0.2); #Lymphocytes 0.4 thou/uL (1.20-3.40); #Monocytes 0.3 thou/uL (0.11-0.59); #Neutrophils 5.2 thou/uL (1.40-6.50); %Basophils 1.3 % (0.0-1.0); %Eosinophils 0.3 % (0.0-10.0); %Lymphocytes 6.2 % (21.0-51.0); %Monocytes 4.8 % (0.0-10.0); %Neutrophils 87.4 % (42.0-75.0); Hemoglobin 10.8 g/dL (14.0-18.0); Large Platelets SLIGHT; MDiff Complete? YES; Macrocytosis MODERATE=16-30 cells (100X) (0-5/hpf); Mean Corpuscular HGB CONC 34.8 g/dL (32.0-36.0); Mean Corpuscular Hemoglobin 35.5 pg (27.0-31.0); Mean Platelet Volume 8.5 fL (7.4-10.4); Ovalocytes SLIGHT = 2-5 cells (100X) (0-1/hpf); Platelet Count 37 thou/uL (130-400); Platelet Morphology Comment Appears Decreased; RBC Distribution Width 13.9 % (11.5-14.5); Red Blood Cell (RBC) Count 3.03 mill/uL (4.70-6.10); White Blood Cell (WBC) Count 5.9 thou/uL (4.8-10.8)
[2022-05-08] MEDS: Cefepime 2 GM in Sodium Chloride 0.9% 100 ML IVPB SCH ×2 (05:00→13:36)
[2022-05-08] MEDS: Mometasone 100 MCG/PUFF (1 INHALER) INH SCH (06:33)
[2022-05-08 06:56] LABS: Actual Bicarbonate (HCO3a) 21.6 mEq/L (22-28); CO2 Tension 33.9 mmHg (35.0-45.0); Calcium, Ionized (arterial) 1.35 mmol/L (1.12-1.30); O2 Tension (PaO2), arterial 78.7 mmHg (> 80.0); Potassium - ABG Lab 5.22 mmol/L (3.70-5.30); pH, Arterial 7.42 (7.35-7.45)
[2022-05-08 07:20] LABS: Puncture Site RRA
[2022-05-08 07:22] LABS: ALV-art Gradient 342.375 mmHg (0-20)
[2022-05-08] MEDS: VANCOMYCIN 2 GRAM/500 ML BAG 2 GM in Premix Bag 1 BAG IVPB SCH (08:00)
[2022-05-08] MEDS: Senokot S 8.6-50 MG TAB PO SCH (08:43)
[2022-05-08] MEDS: Pantoprazole 40 MG VIAL IVP SCH (08:43)
[2022-05-08] MEDS: Clopidogrel Bisulfate 75 MG TAB PO SCH (08:43)
[2022-05-08] MEDS: Lactated Ringer's 1,000 ML IV SCH (08:44)
[2022-05-08] MEDS ORDERED: Polyethylene Glycol 3350 17 GM Packet PER TUBE SCH (09:00)
[2022-05-08] MEDS: Midazolam HCl 2 mg/2 ml Vial SLOW IVP PRN ×2 (14:00→17:00)
[2022-05-08 17:27] VITALS: TEMP 100.6
[2022-05-08] MEDS ORDERED: Digoxin 0.5 MG/2 ML AMP ONE (17:30)
[2022-05-08] MEDS ORDERED: Digoxin 0.5 MG/2 ML AMP SLOW IVP SCH (17:30)
[2022-05-08] MEDS ORDERED: Metolazone 5 MG TAB PO SCH (17:30)
[2022-05-08 17:46] LABS: Actual Bicarbonate (HCO3a) 20.2 mEq/L (22-28); Base Excess (BEa) -6.2 mEq/L (-2.0 to +3.0); CO2 Tension 43.1 mmHg (35.0-45.0); Calcium, Ionized (arterial) 1.37 mmol/L (1.12-1.30); Potassium - ABG Lab 5.29 mmol/L (3.70-5.30); pH, Arterial 7.29 (7.35-7.45)
[2022-05-08] MEDS: Furosemide 40 MG/4 ML VIAL SLOW IVP SCH (17:49)
[2022-05-08 17:51] LABS: O2 Tension (PaO2), arterial 50.1 mmHg (> 80.0)
[2022-05-08 17:52] LABS: ALV-art Gradient 609.025 mmHg (0-20); Puncture Site RRA
[2022-05-08] MEDS ORDERED: Rocuronium Bromide 10 MG/ML (10ML VIAL) ONE (17:58)
[2022-05-08] MEDS ORDERED: Furosemide 40 MG/4 ML VIAL SLOW IVP SCH (18:00)
[2022-05-08] MEDS ORDERED: Sodium Bicarb 50 MEQ/50 ML VIAL ONE (18:04)
[2022-05-08] MEDS ORDERED: Magnesium 5 GM/10 ML Abboject SYRINGE ONE (18:07)
[2022-05-08] MEDS ORDERED: Dextrose 50% Abboject 50 ML SYRINGE ONE (18:07)
[2022-05-08] MEDS ORDERED: Calcium Chloride 1 GM/10 ML Abboject SYRINGE ONE (18:07)
[2022-05-08] MEDS ORDERED: EPINEPHrine 1 MG/10 ML Abboject SYRINGE ONE (18:07)
[2022-05-08] MEDS ORDERED: Sodium Bicarb 50 MEQ/50 ML Abboject 8.4% SYRINGE ONE (18:07)
[2022-05-08 18:15] LABS: Vancomycin, Trough 24.1 ug/mL
[2022-05-08 18:32] LABS: ALT (SGPT) 212 U/L (8-55); AST (SGOT) 195 U/L (5-34); Albumin 2.7 g/dL (3.4-4.8); Alkaline Phosphatase 164 U/L (40-110); Anion Gap 14 mmol/L (10-20); BUN (Urea Nitrogen) 41 mg/dL (8.4-25.7); Calc. Creatinine Clearance 196 mL/min (70-130); Calcium 9.7 mg/dL (7.8-10.44); Carbon Dioxide 20 mmol/L (23-31); Chloride 107 mmol/L (98-107); Estimated GFR 100; Globulin 2.9 g/dL (2.4-3.5); Glucose 112 mg/dL (80-115); Potassium 5.3 mmol/L (3.5-5.1); Protein, Total 5.6 g/dL (5.8-8.1); Sodium 136 mmol/L (136-145)
[2022-05-08] MEDS ORDERED: Vancomycin 1.5 GRAM/300 ML BAG 1.5 GM in Premix Bag 1 BAG IVPB SCH (20:00)
[2022-05-09] MEDS ORDERED: Furosemide 40 MG/4 ML VIAL SLOW IVP SCH (06:00)
[2022-05-09 17:44] LABS: ANA Symphony (Qualitative) Negative (Negative); ANA Symphony (Quantitative) 0.2 Ratio (< 0.7 Negative); dsDNA IgG Antibody Less than 0.5 IU/mL (<10 Negative)
[2022-05-09 18:13] LABS: A. flavus Negative (Neg:<1:1); A. fumigatus Negative (Neg:<1:1); A. niger Negative (Neg:<1:1)
[2022-05-13] MEDS ORDERED: predniSONE 20 MG TAB PO SCH (09:00)
== END 2022-05-08 18:16 | disposition expired | DRG 643 ==
LOC: ERS 10:55 → T4-B 19:31 → IMCU/EMU 05-04 07:27 → OBSVTOIN 05-04 09:28 → CCU 05-05 10:39
PROVIDERS: ADMIT Student in an Organized Health Care Education/Training Program; ATTEND Family Medicine
PROC: 5A09357 Assistance with Respiratory Ventilation, Less than 24 Consecutive Hours, Continuous Positive Airway Pressure (ICD-10-PCS; 2022-05-04)
PROC: 5A1945Z Respiratory Ventilation, 24-96 Consecutive Hours (ICD-10-PCS; 2022-05-05)
PROC: 0BH18EZ Insertion of Endotracheal Airway into Trachea, Via Natural or Artificial Opening Endoscopic (ICD-10-PCS; 2022-05-05)
PROC: 3E033XZ Introduction of Vasopressor into Peripheral Vein, Percutaneous Approach (ICD-10-PCS; 2022-05-05)
PROC: 0B9L8ZX Drainage of Left Lung, Via Natural or Artificial Opening Endoscopic, Diagnostic (ICD-10-PCS; 2022-05-05)
PROC: 3E033XZ Introduction of Vasopressor into Peripheral Vein, Percutaneous Approach (ICD-10-PCS; 2022-05-05)
PROC: 5A12012 Performance of Cardiac Output, Single, Manual (ICD-10-PCS; principal; 2022-05-08)
DX: E27.40 Unspecified adrenocortical insufficiency (principal); A41.9 Sepsis, unspecified organism; G93.41 Metabolic encephalopathy; I21.A1 Myocardial infarction type 2; J96.21 Acute and chronic respiratory failure with hypoxia; J96.22 Acute and chronic respiratory failure with hypercapnia; J15.9 Unspecified bacterial pneumonia; R65.21 Severe sepsis with septic shock; I47.1 Supraventricular tachycardia; J70.0 Acute pulmonary manifestations due to radiation; E87.1 Hypo-osmolality and hyponatremia; I95.9 Hypotension, unspecified; I10 Essential (primary) hypertension; E78.5 Hyperlipidemia, unspecified; D69.6 Thrombocytopenia, unspecified; I46.8 Cardiac arrest due to other underlying condition; R00.1 Bradycardia, unspecified; W88.1XXA Exposure to radioactive isotopes, initial encounter; R79.89 Other specified abnormal findings of blood chemistry; K80.20 Calculus of gallbladder without cholecystitis without obstruction; E87.5 Hyperkalemia; R74.01 Elevation of levels of liver transaminase levels; Z20.822 Contact with and (suspected) exposure to COVID-19; F41.9 Anxiety disorder, unspecified; I48.91 Unspecified atrial fibrillation; Y95 Nosocomial condition; E86.0 Dehydration; Z79.02 Long term (current) use of antithrombotics/antiplatelets; Z79.52 Long term (current) use of systemic steroids; Z88.0 Allergy status to penicillin; Z88.8 Allergy status to other drugs, medicaments and biological substances; Z91.040 Latex allergy status; Z79.899 Other long term (current) drug therapy; Z87.891 Personal history of nicotine dependence; Z85.118 Personal history of other malignant neoplasm of bronchus and lung; I25.2 Old myocardial infarction
CPT/HCPCS: 31624; 36415; 36416; 36600; 70450; 71045; 71275; 76705; 80048; 80053; 80202; 81003; 82553; 82805; 83605; 83690; 83735; 83880; 84443; 84484; 85025; 85060; 86038; 86225; 86606; 86713; 87070; 87449; 87633; 88112; 88305; 88312; 89051; 93005; 93010; 94002; 94003; 94640; 94660; 94760; 96360; 96361; C9113; G0378; J0171; J0692; J1160; J1630; J1720; J1940; J2001; J2060; J2250; J2270; J2704; J2920; J2930; J3010; J3370; J3475; J3490; J7030; J7050; J7120; J7512; J7620; J7999; Q9967; U0003; U0005